=== PATIENT | female | born 1960 | race Caucasian/White ===

== ENCOUNTER → 2016-11-12 | Outpatient (CLI) | payer OTHER ==
[~2016-11-12] MED LIST: ASPIRIN81 MG PO; ESTRACE1 MG IDERM; LOPRESSOR25 MG PO; MELATONIN 3 MG1 EACH PO; MINOCYCLINE HCL50 MG PO; PROBIOTIC1 EAC1 PO; PROGESTERONE200 MG PO; TESTOSTERONE60 GM IDERM; TOPROL XL25 MG PO; VITAMIN D2000 UNI1 PO; ZYRTEC5 MG PO
== END | disposition short-term general hospital (02) ==
LOC: CLORTH 09:47
DX: M17.11 Unilateral primary osteoarthritis, right knee (principal); M94.261 Chondromalacia, right knee